=== PATIENT | male | born 1945 | race Caucasian/White ===

== ENCOUNTER 2017-04-03 16:57 | Emergency (ER) | payer MEDICARE ==
[2017-04-03 17:11] VITALS: BP 201/88; PULSE 73; RESP 13; TEMP 98.5; O2SAT 93
--- NOTE | 2017-04-03 17:16 | PD ---
Physical Exam Time Seen by Provider: 17:14 Narrative Pt presents with acute onset R flank pain x 2 hours. Sharp, constant. Associated nausea. No vomiting. Pain radiates to groin. Has not voided since pain began. No prior urinary symptoms. No fever or chills. Hx BPH Being treated for URI on azithromycin Data Data Last Documented VS Vital Signs Date Time Temp Pulse Resp B/P (MAP) Pulse Ox O2 Delivery O2 Flow Rate FiO2 04/03/17 20:39 04/03/17 17:11 98.5 73 13 93 Orders Orders Complete Blood Count With Diff (04/03/17 17:16) Basic Metabolic Panel (Bmp) (04/03/17 17:16) Urinalysis - C+S If Indicated (04/03/17 17:16) Ct Abd/Pel W/O Iv Contrast (04/03/17 ) Iv Access Insert/Monitor (04/03/17 18:59) Sodium Chlor 0.9% 1000 Ml Inj (Ns 1000 M (04/03/17 19:00) Ketorolac Inj (Toradol Inj) (04/03/17 19:00) Ondansetron Inj (Zofran Inj) (04/03/17 19:00) Acetamin-Hydrocod 325-5 Mg ([place] 5-325 (04/03/17 20:45) Labs Laboratory Tests Test 04/03/17 16:40 White Blood Count 13.0 TH/MM3 Red Blood Count 4.46 MIL/MM3 Hemoglobin 14.2 GM/DL Hematocrit 42.5 % Mean Corpuscular Volume 95.3 FL Mean Corpuscular Hemoglobin 31.9 PG Mean Corpuscular Hemoglobin Concent 33.5 % Red Cell Distribution Width 13.5 % Platelet Count 232 TH/MM3 Mean Platelet Volume 7.7 FL Neutrophils (%) (Auto) 75.0 % Lymphocytes (%) (Auto) 15.1 % Monocytes (%) (Auto) 7.7 % Eosinophils (%) (Auto) 1.8 % Basophils (%) (Auto) 0.4 % Neutrophils # (Auto) 9.7 TH/MM3 Lymphocytes # (Auto) 2.0 TH/MM3 Monocytes # (Auto) 1.0 TH/MM3 Eosinophils # (Auto) 0.2 TH/MM3 Basophils # (Auto) 0.1 TH/MM3 CBC Comment DIFF FINAL Differential Comment Urine Color YELLOW Urine Turbidity HAZY Urine pH 5.5 Urine Specific [place] 1.012 Urine Protein TRACE mg/dL Urine Glucose (UA) NEG mg/dL Urine Ketones 10 mg/dL Urine Occult Blood LARGE Urine Nitrite NEG Urine Bilirubin NEG Urine Urobilinogen LESS THAN 2.0 MG/DL Urine Leukocyte Esterase NEG Urine RBC /hpf Urine WBC 1 /hpf Urine Bacteria RARE /hpf Urine Mucus FEW /lpf Microscopic Urinalysis Comment CULT NOT INDICATED Blood Urea Nitrogen 18 MG/DL Creatinine 1.17 MG/DL Random Glucose 108 MG/DL Calcium Level 9.1 MG/DL Sodium Level 140 MEQ/L Potassium Level 4.2 MEQ/L Chloride Level 106 MEQ/L Carbon Dioxide Level 24.8 MEQ/L Anion Gap 9 MEQ/L Estimat Glomerular Filtration Rate 62 ML/MIN [facility] Medical Record Reviewed: Yes Supervised Visit with ADARSH: No Scripts Hydrocodone-Acetaminophen (Lortab) 5-325 Mg Tab 1 TAB PO Q6H Y for PAIN, #10 TAB 0 Refills Prov: Paola Najera MD 04/03/17 Levofloxacin (Levaquin) 500 Mg Tablet 500 MG PO DAILY for Infection for 7 Days, #7 TAB 0 Refills Prov: Paola Najera MD 04/03/17 Condition: Stable Rhonda Warner ALON Apr 03, 2017 17:16
[2017-04-03] MEDS ORDERED: SODIUM CHLOR 0.9% 1000 ML INJ 1,000 ML IV ONE (19:00)
[2017-04-03] MEDS ORDERED: ONDANSETRON HCL 4 MG/2 ML VIAL IV PUSH ONE (19:00)
[2017-04-03] MEDS ORDERED: KETOROLAC TROMETHAMINE 30 MG/ML (IVP) VIAL IV PUSH ONE (19:00)
--- NOTE | 2017-04-03 19:05 | RADRPT ---
EXAM DATE/TIME: 04/03/2017 18:16 [place] COMPARISON: No previous studies available for comparison. INDICATIONS : Right flank pain,radiates to groan ORAL CONTRAST: No oral contrast ingested. RADIATION DOSE: 24.44 CTDIvol (mGy) MEDICAL HISTORY : None SURGICAL HISTORY : None. ENCOUNTER: Initial ACUITY: 1 day PAIN SCALE: 8/10 LOCATION: Right Abdomen TECHNIQUE: Volumetric scanning of the abdomen and pelvis was performed. Using automated exposure control and ad justment of the mA and/or kV according to patient size, radiation dose was kept as low as reasonably achievable to obtain optimal diagnostic quality images. DICOM format image data is available electro nically for review and comparison. FINDINGS: LOWER LUNGS: The visualized lower lungs are clear. LIVER: Homogeneous density without lesion. There is no dilation of the biliary tree. No calcified gallston es. SPLEEN: Normal size without lesion. PANCREAS: Within normal limits. KIDNEYS: There is moderate dilatation of the right collecting system and proximal and mid right ureter. There is a 5 mm stone at the distal right ureter approximately 4 cm above the right UVJ. There are 3 calcif ications seen within the right collecting system. The largest one measures 6 mm and is seen at the mi d to upper collecting system. There is a 2-3 mm stone at the inferior collecting and a 1-2 mm stone s een in the superior right collecting system.. There is mild dilatation of the left collecting system. The left ureter is not dilated. Left-sided calcifications are not seen. There is perinephric strandi ng seen bilaterally being much more prominent on the right. ADRENAL GLANDS: Within normal limits. VASCULAR: There is no aortic aneurysm. BOWEL/MESENTERY: There is a mild hiatal hernia. There scattered colonic diverticula without inflammatory change. ABDOMINAL WALL: Within normal limits. RETROPERITONEUM: There is no lymphadenopathy. BLADDER: There do appear to be calcifications within the dependent portion of the bladder likely from passed s tones measuring up to 3 mm. REPRODUCTIVE: The prostate is enlarged and impresses upon the bladder floor. Prostatic calcifications are seen. INGUINAL: There is no lymphadenopathy or hernia. MUSCULOSKELETAL: There is degenerative change of the lumbar spine. CONCLUSION: 1. 5 mm stone at the distal right ureter causing dilatation of the right collecting system in more pr oximal right ureter. 2. At least 3 nonobstructing right renal stones in the right collecting system. 3. Perinephric stranding seen bilaterally being much more prominent right. 4. Tiny 3 mm stone in the urinary bladder likely from a passed stone. 5. Prostatic enlargement. 6. Mild hiatal hernia. 7. Colonic diverticula. Kermit Davison MD on April 03, 2017 at 18:56 Board Certified Radiologist. This report was verified electronically.
[2017-04-03 19:31] LABS: AUTOMATED NEUTROPHIL # 9.7 TH/MM3 (1.8-7.7); BASOPHIL # 0.1 TH/MM3 (0-0.2); BASOPHIL % 0.4 % (0.0-2.0); EOSINOPHIL # 0.2 TH/MM3 (0-0.4); EOSINOPHIL % 1.8 % (0.0-4.0); HEMATOCRIT 42.5 % (39.0-51.0); HEMO FLAGS DIFF FINAL; LYMPH % 15.1 % (9.0-44.0); MEAN CELL VOLUME 95.3 FL (80.0-100.0); MEAN CORPUSCULAR HEMOGLOBIN 31.9 PG (27.0-34.0); MEAN CORPUSCULAR HGB CONC 33.5 % (32.0-36.0); MONO % 7.7 % (0.0-8.0); PLATELET COUNT 232 TH/MM3 (150-450); RED BLOOD COUNT 4.46 MIL/MM3 (4.50-5.90); RED CELL DISTRIBUTION WIDTH 13.5 % (11.6-17.2)
[2017-04-03 19:34] LABS: BACTERIA, URINE RARE /hpf; BLOOD, URINE LARGE (NEG); COMMENT (UR) CULT NOT INDICATED; CULTURE IF INDICATED CULT NOT INDICATED; GLUCOSE,URINE NEG (NEG); KETONE, URINE 10 mg/dL (NEG); MUCUS URINE FEW /lpf (OCC); NITRITE,URINE NEG (NEG); PH, URINE 5.5 (5.0-8.5); URINE COLOR YELLOW (YELLW/STRAW)
[2017-04-03] MEDS ORDERED: DOXA1TAB43 PO (19:46)
[2017-04-03 19:50] LABS: BICARBONATE 24.8 MEQ/L (21.0-32.0); POTASSIUM 4.2 MEQ/L (3.5-5.1)
[2017-04-03] MEDS ORDERED: ACETAMINOPHEN/HYDROcodone 325 MG/5 MG TAB PO ONE (20:45)
[2017-04-03] MEDS ORDERED: LEVA500T20 PO (20:51)
[2017-04-03] MEDS ORDERED: HYDR-3533 PO (20:51)
--- NOTE | 2017-04-03 20:51 | PD ---
HPI Chief Complaint: Flank/Kidney Pain Time Seen by Provider: 18:51 Travel History International Travel<30 days: No Contact w/Intl Traveler<30days: No Traveled to known affect area: No History of Present Illness HPI Patient is a 72 year old male who comes in complaining of right sided flank pain wrapping around into his lower abdomen. He says it started with a pressure sensation in his rectum, but then became pain in his back and abdomen. He says he has a history of kidney stones within his right kidney, but they have never given him any issues. The pain started today. He says he felt a little nauseous, but has not vomited. He denies fever or chills. He denies any issues with urination. PFSH Past Medical History Diminished Hearing: No Medical other: Yes (BPH ) ?: Not Social History Alcohol Use: Yes (OCC) Tobacco Use: Yes (CIGARS) Substance Use: No Allergies-Medications (Allergen,Severity, Reaction): Coded Allergies: No Known Allergies (Unverified , 04/03/17) Reported Meds & Prescriptions Reported Meds & Active Scripts Active Reported Doxazosin (Doxazosin Mesylate) 8 Mg Tab 8 Mg PO HS Review of Systems Except as stated in HPI: all other systems reviewed are Neg General / Constitutional: No: Fever, Chills HENT: No: Headaches, Lightheadedness Cardiovascular: No: Chest Pain or Discomfort Respiratory: No: Shortness of Breath Gastrointestinal: Positive: Nausea, Abdominal Pain, No: Vomiting Genitourinary: Positive: Flank Pain, No: Dysuria, Hematuria Skin: No Rash, No Change in Pigmentation Neurologic: No: Weakness, Dizziness Physical Exam Narrative GENERAL: Awake and alert, in no acute distress. SKIN: Focused skin assessment warm/dry. HEAD: Atraumatic. Normocephalic. EYES: Pupils equal and round. No scleral icterus. No injection or drainage. ENT: Mucous membranes pink and moist. NECK: Trachea midline. No JVD. CARDIOVASCULAR: Regular rate and rhythm. No murmur appreciated. RESPIRATORY: No accessory muscle use. Clear to auscultation. Breath sounds equal bilaterally. GASTROINTESTINAL: Abdomen soft, nondistended. Right CVA tenderness. Mild suprapubic tenderness. No rebound or guarding. MUSCULOSKELETAL: No obvious deformities. No clubbing. No cyanosis. No edema. NEUROLOGICAL: Awake and alert. No obvious cranial nerve deficits. Motor grossly within normal limits. Normal speech. PSYCHIATRIC: Appropriate mood and affect; insight and judgment normal. Data Data Last Documented VS Vital Signs Date Time Temp Pulse Resp B/P (MAP) Pulse Ox O2 Delivery O2 Flow Rate FiO2 04/03/17 17:11 98.5 73 13 201/88 (125) 93 Orders Orders Complete Blood Count With Diff (04/03/17 17:16) Basic Metabolic Panel (Bmp) (04/03/17 17:16) Urinalysis - C+S If Indicated (04/03/17 17:16) Ct Abd/Pel W/O Iv Contrast (04/03/17 ) Iv Access Insert/Monitor (04/03/17 18:59) Sodium Chlor 0.9% 1000 Ml Inj (Ns 1000 M (04/03/17 19:00) Ketorolac Inj (Toradol Inj) (04/03/17 19:00) Ondansetron Inj (Zofran Inj) (04/03/17 19:00) Acetamin-Hydrocod 325-5 Mg ([place] 5-325 (04/03/17 20:45) Labs Laboratory Tests Test 04/03/17 16:40 White Blood Count 13.0 TH/MM3 Red Blood Count 4.46 MIL/MM3 Hemoglobin 14.2 GM/DL Hematocrit 42.5 % Mean Corpuscular Volume 95.3 FL Mean Corpuscular Hemoglobin 31.9 PG Mean Corpuscular Hemoglobin Concent 33.5 % Red Cell Distribution Width 13.5 % Platelet Count 232 TH/MM3 Mean Platelet Volume 7.7 FL Neutrophils (%) (Auto) 75.0 % Lymphocytes (%) (Auto) 15.1 % Monocytes (%) (Auto) 7.7 % Eosinophils (%) (Auto) 1.8 % Basophils (%) (Auto) 0.4 % Neutrophils # (Auto) 9.7 TH/MM3 Lymphocytes # (Auto) 2.0 TH/MM3 Monocytes # (Auto) 1.0 TH/MM3 Eosinophils # (Auto) 0.2 TH/MM3 Basophils # (Auto) 0.1 TH/MM3 CBC Comment DIFF FINAL Differential Comment Urine Color YELLOW Urine Turbidity HAZY Urine pH 5.5 Urine Specific [place] 1.012 Urine Protein TRACE mg/dL Urine Glucose (UA) NEG mg/dL Urine Ketones 10 mg/dL Urine Occult Blood LARGE Urine Nitrite NEG Urine Bilirubin NEG Urine Urobilinogen LESS THAN 2.0 MG/DL Urine Leukocyte Esterase NEG Urine RBC /hpf Urine WBC 1 /hpf Urine Bacteria RARE /hpf Urine Mucus FEW /lpf Microscopic Urinalysis Comment CULT NOT INDICATED Blood Urea Nitrogen 18 MG/DL Creatinine 1.17 MG/DL Random Glucose 108 MG/DL Calcium Level 9.1 MG/DL Sodium Level 140 MEQ/L Potassium Level 4.2 MEQ/L Chloride Level 106 MEQ/L Carbon Dioxide Level 24.8 MEQ/L Anion Gap 9 MEQ/L Estimat Glomerular Filtration Rate 62 ML/MIN [facility] Medical Decision Making Medical Screen Exam Complete: Yes Emergency Medical Condition: Yes Differential Diagnosis Renal stone vs UTI vs pyelonephritis Narrative Course Patient is a 72 year old male who comes in complaining of right flank pain and abdominal pain. Exam shows right CVA tenderness and suprapubic tenderness. IV established, labs sent. Labs show Creatinine within normal limits. There is blood in the urine. CT abd/pelvis shows an obstructing 5mm stone on the right as well as two stones within the kidney. Patient given IVF and Toradol. He reports feeling better, but still has some pain. Will given a Lortab. Patient would like to go home and follow up with his doctors. He is already on Flomax. Advised to increase his fluid intake. Advised to return at any time for any worsening symptoms. Given prescriptions for Levaquin (due to stranding around his kidneys) and Lortab. He is from [place] and would like to follow up with urology there. Diagnosis Primary Impression: Renal stone Patient Instructions: General Instructions, Kidney Stones (ED) Additional Instructions: Drink plenty of fluids. Take the Flomax as prescribed. You can take Ibuprofen for pain and take the Lortab as needed for severe pain. Stop your Azithromycin and take the Levaquin instead. Return at any time for any worsening pains or any other worsening symptoms. Follow up with urology and your primary care doctor. Scripts Hydrocodone-Acetaminophen (Lortab) 5-325 Mg Tab 1 TAB PO Q6H Y for PAIN, #10 TAB 0 Refills Prov: Paola Najera MD 04/03/17 Levofloxacin (Levaquin) 500 Mg Tablet 500 MG PO DAILY for Infection for 7 Days, #7 TAB 0 Refills Prov: Paola Najera MD 04/03/17 Disposition: 01 DISCHARGE HOME Condition: Stable Paola Najera MD Apr 03, 2017 20:51
== END 2017-04-03 21:05 | disposition home or self-care (01) ==
LOC: NEPD 16:57
DX: N20.0 Calculus of kidney (principal); N40.0 Benign prostatic hyperplasia without lower urinary tract symptoms; Z87.442 Personal history of urinary calculi; Z72.0 Tobacco use
CPT/HCPCS: 74176; 80048; 81001; 85025; 96361; 96374; 96375; 99285; J1885; J2405; J7030